=== PATIENT | female | born 1975 ===

== ENCOUNTER 2019-04-27 14:21 | Emergency (ER) | payer SELFPAY ==
[2019-04-27] MEDS ORDERED: NS 0.9% 1000 ML** 1,000 ML IV ONE (14:26)
--- NOTE | 2019-04-27 14:37 | ED ---
Complex/Multi-Sys Presentation - HPI Summary HPI Summary: Patient does not speak Turkmen, is speaking Telugu with COSMO Dempsey and ED provider. A 43 y/o F brought in by ambulance from [facility] presents to ED c/o heavy vaginal bleeding onset 15 days ago. Associated sx: dizziness/lightheadedness, near-syncope, nausea. Denies abd pain. Patient had an EKG at the that was normal. She has soaked 4 pads today, and is currently wearing a tampon. Per EMS : patient's vitals en route were good. She takes control pills, otherwise she denies daily medication. Non-smoker, no ETOH. Patient was seen at a hospital in [place] eight days ago for the same sx, she was supposed to take a hormone replacement but has not. Patient is from [facility] and lives in [place]. She does not have kids, and had a tubal ligation approx 10 years ago. - History Of Current Complaint Time Seen by Provider: 04/27/19 14:26 Hx Obtained From: Patient, Family/Arch[employer] Internship Onset/Duration: Lasting Weeks - 15 days, Still Present Timing: Constant Severity Currently: Severe Severity Initially: Severe Associated Signs And Symptoms: Positive: Dizziness - /lightheadedness, Syncope - near-syncope, Nausea. Negative: Abdominal Pain - Allergies/Home Medications Allergies/Adverse Reactions: Allergies Allergy/AdvReac Type Severity Reaction Status Date / Time No Known Allergies Allergy Verified 04/27/19 15:55 PMH/Surg Hx/FS Hx/Imm Hx Previously Healthy: Yes History: Reports: Other Problems/Disorders - pos: irregular menstruation Sensory History: Denies: Hx Deafness Opthamlomology History: Denies: Hx Legally Blind EENT History: Denies: Hx Deafness - Surgical History Surgery Procedure, Year, and Place: tubal ligation, bunionectomy - R foot - Social History Occupation: Unemployed - OTHER Lives: Dormitory/Roommates Alcohol Use: None Hx Tobacco Use: No Review of Systems Positive: Nausea. Negative: Abdominal Pain Positive: discharge - pos: vaginal bleeding Neurological: Other - pos: dizziness/lightheadedness Positive: Syncope - near-syncope All Other Systems Reviewed And Are Negative: Yes Physical Exam - Summary Physical Exam Summary: Appearance: well appearing, mild distress Skin: warm, dry, reflects adequate perfusion Head/face: normal Eyes: EOMI, WU ENT: mucous membranes moist Neck: supple, non-tender Respiratory: CTA, breath sounds present, tachypneic Cardiovascular: RRR, pulses symmetrical Abdomen: non-tender, soft Bowel Sounds: present Musculoskeletal: normal, strength/ROM intact Neuro: normal, sensory motor intact, A&Ox3 GI: Mild amount of blood in vaginal vault. PA student, Barbara and nurse RN, Roselyn chaperoned exam. Triage Information Reviewed: Yes Vital Signs Reviewed: Yes Diagnostics - Laboratory Result Diagrams: 04/27/19 14:52 04/27/19 14:52 Lab Statement: Any lab studies that have been ordered have been reviewed, and results considered in the medical decision making process. - Ultrasound No standard instances Ultrasound Interpretation Completed By: Radiologist Summary of Ultrasound Findings: TRANS VAG US IMPRESSION: Slightly thickened endometrium likely due to the phase of the patient's menstrual cycle. No adnexal masses are noted. ED provider has reviewed this report. - EKG 1452 Cardiac Rate: Bradycardia - 58 bpm EKG Rhythm: Sinus Bradycardia ST Segment: Normal Summary of EKG Findings: Normal [place]/ Normal Interval. Re-Evaluation - Re-Evaluation 1 Re-Evaluation Time: 15:21 Change: Unchanged Comment: Performing pelvic exam. 2 Re-Evaluation Time: 16:21 Change: Improved Comment: Discussing results with patient and friend, and plans for discharge. Pt is agreeable with this. Complex Multi-Symp Course/Dx Course Of Treatment: Patient with ongoing dysfunctional uterine bleeding. Found to be anemic and near syncopal. She was much improved with IV fluids. Her bleeding was minimal here. Her endometrium is thickened at 1.4 cm. She was started on mefemenic acid and estrogen/progesterone containing control pill to regulate this. She'll follow-up with her CLINIC OFFICE MANAGER on return back to [place]. - Diagnoses Differential Diagnoses/HQI/PQRI: Other - fibriods, endometriosis, DUB, endometrial ca Provider Diagnoses: Dysfunctional uterine bleeding, Menorrhagia Discharge - Sign-Out/Discharge Documenting (check all that apply): Patient Departure - D/C Patient Received Moderate/Deep Sedation with Procedure: No - Discharge Plan Condition: Improved Disposition: HOME Prescriptions: Mefenamic Acid 250 mg PO TID #9 capsule Norethindrone-E.estradiol-Iron [Loestrin Fe 1.5-30 Tablet] 1 each PO DAILY #1 packet Patient Education Materials: Dysfunctional Uterine Bleeding (ED) Print Language: MACEDONIAN Referrals: [facility] [Outside] Additional Instructions: Llame a schneider mdico a primera hora de maana para programar un seguimiento rpido. Regrese con sangrado abundante, debilidad, desmayo, nuevos sntomas u otras inquietudes. Teofilo los medicamentos hoy y empieza a tomarlos. - Billing Disposition and Condition Condition: IMPROVED Disposition: Home - Attestation Statements Document Initiated by Scribe: Yes Documenting Scribe: Chris Babcock Provider For Whom Scribe is Documenting (Include Credential): Dr. Dieudonne Layton MD Scribe Attestation: Chris Paulson scribed for Dr. Dieudonne Layton MD on 04/27/19 at 1728. Scribe Documentation Reviewed: Yes Provider Attestation: The documentation as recorded by the Chris mcintosh accurately reflects the service I personally performed and the decisions made by me, Dr. Dieudonne Layton MD Status of Scribe Document: Viewed
[2019-04-27 15:13] LABS: ABS Basophils 0.1 10^3/ul (0-0.2); ABS Eosinophils 0.6 10^3/ul (0-0.6); ABS Lymphocytes 2.1 10^3/ul (1.0-4.8); ABS Monocytes 0.4 10^3/ul (0-0.8); ABS Neutrophils 2.9 10^3/ul (1.5-7.7); Eosinophil % 9.9 %; Hematocrit 30 % (35-47); Lymphocyte % 34.8 %; Mean Corpuscular HGB Conc 34 g/dL (31-36); Mean Corpuscular Hemoglobin 31 pg (27-31); Mean Corpuscular Volume 92 fL (80-97); Mean Platelet Volume 8.2 fL (7.4-10.4); Nucleated Red Blood Cells % 0.1; Platelet Count 293 10^3/uL (150-450); Red Blood Count 3.22 10^6 /uL (3.70-4.87); Red Cell Distribution Width 14 % (10.5-15); White Blood Count 6.2 10^3/uL (3.5-10.8)
[2019-04-27 15:30] LABS: HCG Pregnancy < 0.60 mIU/mL
[2019-04-27 15:37] LABS: Anion Gap 6 mmol/L (2-11); BUN/Creatinine Ratio 20.9 (8-20); Blood Urea Nitrogen 14 mg/dL (6-24); CO2 Carbon Dioxide 25 mmol/L (22-32); Calcium 9.2 mg/dL (8.6-10.3); Chloride 107 mmol/L (101-111); EGFR African American 116.2 (>60); EGFR Non-African American 96.1 (>60); Glucose 102 mg/dL (70-100); Potassium 3.6 mmol/L (3.5-5.0); Sodium 138 mmol/L (135-145)
[2019-04-27 17:01] VITALS: BP 132/74
== END 2019-04-27 16:45 | disposition home or self-care (01) ==
LOC: ED 14:21
DX: N93.8 Other specified abnormal uterine and vaginal bleeding (principal); N92.0 Excessive and frequent menstruation with regular cycle; R42 Dizziness and giddiness; R55 Syncope and collapse
CPT/HCPCS: 36415; 76830; 80048; 84702; 85025; 86850; 86900; 86901; 93005; 96360; 99283